=== PATIENT | female | born 1990 | race Caucasian/White ===

== ENCOUNTER 2017-06-22 08:32 | Emergency (ER) | payer SELFPAY ==
[2017-06-22] MEDS ORDERED: Albuterol-Ipratrop 3 mg / 0.5 (3 ml) UD INH STA ×2 (09:11→10:03)
[2017-06-22] MEDS ORDERED: Albuterol-Ipratrop 3 mg / 0.5 (3 ml) UD ONE (09:23)
[2017-06-22 09:27] VITALS: BP 139/73; PULSE 104; RESP 12; O2SAT 99
--- NOTE | 2017-06-22 09:49 | ED PDOC ---
HPI: SOB/CHF/COPD Time Seen by Provider: 06/22/17 09:06 Chief Complaint (Nursing): Shortness Of Breath Chief Complaint (Provider): cough SOB History Per: Patient History/Exam Limitations: no limitations Onset/Duration Of Symptoms: Hrs (1), Sudden Onset Current Symptoms Are (Timing): Still Present Quality: Tightness Exacerbating Factor(s): Exertion, Other (cold weather) Severity: Moderate Additional Complaint(s): 26yo female c/o cough, SOB and chest tightness for last hour after exposure to cold weather. Also states been developing symptoms of URI over last few days. Denies fever, syncope or resp distress. Past Medical History Reviewed: Historical Data, Nursing Documentation, Vital Signs Vital Signs: Last Vital Signs Temp 97.0 F L 06/22/17 08:51 Pulse 104 H 06/22/17 09:26 Resp 12 06/22/17 09:26 BP 139/73 06/22/17 09:26 Pulse Ox 99 06/22/17 09:26 - Medical History PMH: Asthma Denies: Chronic Kidney Disease - Surgical History Surgical History: No Surg Hx - Family History Family History: States: Unknown Family Hx - Social History Current smoker - smoking cessation education provided: Yes - Home Medications Home Medications: Ambulatory Orders Medication Instructions Recorded No Known Home Med 06/22/17 - Allergies Allergies/Adverse Reactions: Allergies Allergy/AdvReac Type Severity Reaction Status Date / Time No Known Allergies Allergy Verified 06/22/17 08:55 Review of Systems Constitutional: Positive for: Malaise ENT: Positive for: Nose Discharge, Throat Pain. Negative for: Throat Swelling Respiratory: Positive for: Cough, Shortness of Breath, Wheezing Gastrointestinal: Negative for: Nausea, Abdominal Pain Musculoskeletal: Negative for: Neck Pain, Arm Pain, Back Pain, Leg Pain Skin: Negative for: Rash, Lesions Neurological: Negative for: Weakness, Numbness Physical Exam - Reviewed Nursing Documentation Reviewed: Yes Vital Signs Reviewed: Yes - Physical Exam Appears: Positive for: Well, Non-toxic, No Acute Distress Head Exam: Positive for: ATRAUMATIC, NORMAL INSPECTION, NORMOCEPHALIC Skin: Positive for: Normal Color, Warm, DRY Eye Exam: Positive for: EOMI, Normal appearance, PERRL ENT: Positive for: Normal ENT Inspection Neck: Positive for: Normal, Painless ROM Cardiovascular/Chest: Positive for: Regular Rate, Rhythm Respiratory: Positive for: Wheezing. Negative for: Respiratory Distress Gastrointestinal/Abdominal: Positive for: Normal Exam, Bowel Sounds, Soft Back: Positive for: Normal Inspection Extremity: Positive for: Normal ROM. Negative for: Tenderness, Deformity, Swelling Neurologic/Psych: Positive for: Alert, Oriented. Negative for: Motor/Sensory Deficits - ECG O2 Sat by Pulse Oximetry: 99 Pulse Ox Interpretation: Normal Medical Decision Making Medical Decision Making: duoneb and prednisone PO ordered will check CXR and flu swab flu neg Disposition - Disposition
--- NOTE | 2017-06-22 11:20 | RAD ---
HISTORY: cough SOB COMPARISON: No prior. TECHNIQUE: Chest PA and lateral FINDINGS: LUNGS: No active pulmonary disease. PLEURA: No significant pleural effusion identified. No pneumothorax apparent. CARDIOVASCULAR: Normal. OSSEOUS STRUCTURES: No significant abnormalities. VISUALIZED UPPER ABDOMEN: Normal. OTHER FINDINGS: None. IMPRESSION: No acute cardiopulmonary disease appreciated.
[2017-06-22 11:54] VITALS: TEMP 99.8
== END 2017-06-22 12:00 | disposition home or self-care (01) ==
LOC: H.ER 08:32
DX: J44.9 Chronic obstructive pulmonary disease, unspecified (principal)